=== PATIENT | male | born 1965 | race Hispanic/Latino ===

== ENCOUNTER 2024-06-17 11:49 | Observation (INO) | payer BC ==
[2024-06-17] MEDS ORDERED: Aspirin Chewable 81 MG TAB ONE (12:07)
[2024-06-17 12:47] LABS: #Basophils 0.06 10x3/uL (0.0-0.2); #Eosinphils 0.05 10x3/uL (0.0-0.5); #Monocytes 0.51 10x3/uL (0.0-1.1); #Neutrophils 4.91 10x3/uL (1.5-8.4); %Basophils 0.8 % (0.0-2.0); %Eosinophils 0.6 % (0.0-6.0); %Lymphocytes 28.5 % (18.0-47.0); %Monocytes 6.6 % (0.0-10.0); %Neutrophils 63.1 % (40.0-75.0); Hematocrit 42.3 % (38.8-50.0); Hemoglobin 14.6 g/dL (13.5-17.5); Mean Corpuscular HGB CONC 34.5 g/dL (32.0-36.0); Mean Corpuscular Hemoglobin 33.1 pg (27.0-33.0); Mean Corpuscular Volume 95.9 fL (81.2-95.1); Platelet Count 397 10x3/uL (150-450); RBC Distribution Width 12.9 % (11.5-14.5); Red Blood Cell (RBC) Count 4.41 10x6/uL (4.32-5.72); White Blood Cell (WBC) Count 7.8 10x3/uL (3.5-10.5)
[2024-06-17 12:48] LABS: ALT (SGPT) 16 U/L (8-55); AST (SGOT) 20 U/L (5-34); Albumin 4.2 g/dL (3.5-5.0); Alkaline Phosphatase 67 U/L (40-110); Anion Gap 13 mmol/L (10-20); BUN (Urea Nitrogen) 10 mg/dL (8.4-25.7); Bilirubin, Total 0.4 mg/dL (0.2-1.2); Calc. Creatinine Clearance 0 mL/min (70-130); Carbon Dioxide 25 mmol/L (22-29); Chloride 107 mmol/L (98-107); Estimated GFR 100; Globulin 2.9 g/dL (2.4-3.5); Glucose 98 mg/dL (70-105); Potassium 4.2 mmol/L (3.5-5.1); Protein, Total 7.1 g/dL (6.0-8.3); Sodium 141 mmol/L (136-145)
[2024-06-17 12:54] LABS: Troponin I Less than 0.010 ng/mL (< 0.028)
[2024-06-17] MEDS ORDERED: Acetaminophen 325 MG TAB PO PRN (17:11)
[2024-06-17] MEDS ORDERED: Nitroglycerin 0.4 MG TAB (25 Tab Bottle) SL PRN (17:16)
[2024-06-17 17:59] LABS: Troponin I Less than 0.010 ng/mL (< 0.028)
[2024-06-17 20:19] VITALS: BMI 21.5
[2024-06-17] MEDS: Famotidine 20 MG TAB PO SCH (20:43)
[2024-06-17] MEDS: Simvastatin 10 MG TAB PO SCH (20:43)
[2024-06-17] MEDS: Aspirin 325 MG TAB PO SCH (20:44)
[2024-06-17 21:13] LABS: Troponin I Less than 0.010 ng/mL (< 0.028)
[2024-06-17] MEDS ORDERED: Melatonin 3 MG TAB PO PRN (23:40)
[2024-06-17] MEDS ORDERED: Lorazepam 2 MG/ML VIAL SLOW IVP SCH (23:45)
[2024-06-18] MEDS: Melatonin 3 MG TAB PO PRN (00:04)
[2024-06-18] MEDS: Lorazepam 2 MG/ML VIAL SLOW IVP SCH (00:05)
[2024-06-18 04:53] LABS: #Basophils 0.09 10x3/uL (0.0-0.2); #Eosinphils 0.16 10x3/uL (0.0-0.5); #Monocytes 0.57 10x3/uL (0.0-1.1); #Neutrophils 3.76 10x3/uL (1.5-8.4); %Basophils 1.3 % (0.0-2.0); %Eosinophils 2.3 % (0.0-6.0); %Lymphocytes 35.1 % (18.0-47.0); %Monocytes 8.1 % (0.0-10.0); %Neutrophils 53.1 % (40.0-75.0); Hematocrit 39.6 % (38.8-50.0); Hemoglobin 13.8 g/dL (13.5-17.5); Mean Corpuscular HGB CONC 34.8 g/dL (32.0-36.0); Mean Corpuscular Hemoglobin 33.5 pg (27.0-33.0); Mean Corpuscular Volume 96.1 fL (81.2-95.1); Platelet Count 389 10x3/uL (150-450); RBC Distribution Width 13.1 % (11.5-14.5); Red Blood Cell (RBC) Count 4.12 10x6/uL (4.32-5.72); White Blood Cell (WBC) Count 7.1 10x3/uL (3.5-10.5)
[2024-06-18 05:12] LABS: Anion Gap 13 mmol/L (10-20); BUN (Urea Nitrogen) 9 mg/dL (8.4-25.7); Calc. Creatinine Clearance 90 mL/min (70-130); Calcium 9.1 mg/dL (7.8-10.44); Carbon Dioxide 23 mmol/L (22-29); Chloride 108 mmol/L (98-107); Estimated GFR 101; Glucose 93 mg/dL (70-105); Sodium 140 mmol/L (136-145)
[2024-06-18] MEDS: Aspirin Chewable 81 MG TAB PO SCH (10:48)
[2024-06-18] MEDS: Amlodipine 10 MG TAB PO SCH (10:48)
[2024-06-18] MEDS: FLU (Fluarix Triv) TS24-25(6MOS UP)/PF 45 MCG/0.5 ML Syringe IM ONE (10:49)
[2024-06-18] MEDS: Enoxaparin 40 MG (0.4 mL) SYRINGE SC SCH (10:49)
[2024-06-18 16:42] VITALS: BP 126/89; TEMP 98.5
== END 2024-06-18 17:05 | disposition home or self-care (01) ==
LOC: CSHERS 11:49 → CSHERHOLD 14:26 → CSHTELE 18:19
PROVIDERS: ADMIT Internal Medicine; ATTEND Physician Assistant
DX: R07.89 Other chest pain (principal); I10 Essential (primary) hypertension; F10.10 Alcohol abuse, uncomplicated; E78.5 Hyperlipidemia, unspecified; F17.200 Nicotine dependence, unspecified, uncomplicated; Z90.49 Acquired absence of other specified parts of digestive tract; Z79.899 Other long term (current) drug therapy
CPT/HCPCS: 36415; 71045; 71046; 80048; 80053; 83880; 84484; 85025; 93005; G0378; J1650

== ENCOUNTER 2024-06-21 06:26 | Day surgery (SDC) | payer BC ==
[2024-06-21] MEDS ORDERED: Nitroglycerin 50 MG/250 ML BOT 0 ML ONE (06:51)
[2024-06-21] MEDS ORDERED: Lidocaine 1% (PF) 30 ML VIAL ONE (06:51)
[2024-06-21] MEDS ORDERED: Heparin 10,000 UNITS/ 10 ML VIAL ONE (06:51)
[2024-06-21] MEDS ORDERED: Aspirin Chewable 81 MG TAB ONE (06:51)
[2024-06-21] MEDS ORDERED: Midazolam HCl 2 mg/2 ml Vial ONE (06:52)
[2024-06-21] MEDS ORDERED: Atropine Sulfate 1 mg/1 ml Vial ONE (06:52)
[2024-06-21] MEDS ORDERED: fentaNYL 50 mcg/mL 1 mL Vial ONE (06:52)
[2024-06-21] MEDS ORDERED: Adenosine 6 mg (2 mL) VIAL ONE (06:52)
[2024-06-21 06:53] VITALS: BP 131/81; TEMP 98.6
[2024-06-21 07:56] LABS: INR-International Normal Ratio 0.9; Prothrombin Time 9.8 sec (9.5-12.1)
[2024-06-21] MEDS ORDERED: TICAGRELOR 90 MG TABLET ONE (08:15)
[2024-06-21] MEDS ORDERED: Protamine Sulfate 50 MG/5 ML VIAL ONE (08:45)
== END 2024-06-21 11:45 | disposition home or self-care (01) ==
LOC: CSHSDC 06:26
PROVIDERS: ATTEND Internal Medicine Cardiovascular Disease
PROC: B205YZZ Plain Radiography of Left Heart using Other Contrast (ICD-10-PCS; principal; 2024-06-21)
PROC: 4A023N7 Measurement of Cardiac Sampling and Pressure, Left Heart, Percutaneous Approach (ICD-10-PCS; principal; 2024-06-21)
DX: I25.110 Atherosclerotic heart disease of native coronary artery with unstable angina pectoris (principal); I10 Essential (primary) hypertension
CPT/HCPCS: 85347; 85610; 85730; 92928; 92978; 92979; 93005; 93010; 93458; 99152; 99153; C9600; J0153; J0461; J1644; J2001; J2250; J2720; J3010